=== PATIENT | female | born 1990 | race Two or more races ===

== ENCOUNTER 2019-03-17 12:04 | Observation (INO) | payer MEDICAID ==
[~2019-03-17 12:04] MED LIST: PREN-96 PO
[2019-03-17] MEDS ORDERED: FERR-7 PO (12:42)
== END 2019-03-17 13:10 | disposition home or self-care (01) | DRG 566 ==
LOC: LDRP 12:04
PROVIDERS: ADMIT Obstetrics & Gynecology; ATTEND Obstetrics & Gynecology
DX: O40.3XX0 Polyhydramnios, third trimester, not applicable or unspecified (principal); O26.893 Other specified pregnancy related conditions, third trimester; N89.8 Other specified noninflammatory disorders of vagina; Z87.891 Personal history of nicotine dependence; Z3A.31 31 weeks gestation of pregnancy
CPT/HCPCS: 59025; 76818; 81002; G0378

== ENCOUNTER 2019-03-20 11:18 | Observation (INO) | payer MEDICAID ==
[~2019-03-20] VITALS: Ht 152.4 cm; Wt 65.8 kg
[~2019-03-20 11:18] MED LIST changes: +FERR-7 PO
[2019-03-20] MEDS ORDERED: TERBUTALINE SULFATE 1 MG/ML 1ML VIAL SC PRN (12:15)
== END 2019-03-20 12:55 | disposition home or self-care (01) | DRG 566 ==
LOC: LDRP 11:18
PROVIDERS: ADMIT Specialist; ATTEND Specialist
DX: O40.3XX0 Polyhydramnios, third trimester, not applicable or unspecified (principal); Z3A.32 32 weeks gestation of pregnancy; Z87.891 Personal history of nicotine dependence
CPT/HCPCS: 59025; 76818; 81002; 96372; G0378; J3105

== ENCOUNTER 2019-03-24 11:38 | Observation (INO) | payer MEDICAID | END 2019-03-24 13:05 | disposition home or self-care (01) | DRG 566 | LOC: LDRP 11:38 | PROVIDERS: ADMIT Specialist; ATTEND Specialist | DX: O40.3XX0 Polyhydramnios, third trimester, not applicable or unspecified (principal); Z3A.32 32 weeks gestation of pregnancy | CPT/HCPCS: 59025; 76818; 81002; G0378 ==

== ENCOUNTER 2019-03-27 11:20 | Observation (INO) | payer MEDICAID | END 2019-03-27 12:40 | disposition home or self-care (01) | DRG 566 | LOC: LDRP 11:20 | PROVIDERS: ADMIT Obstetrics & Gynecology; ATTEND Obstetrics & Gynecology | DX: O40.3XX0 Polyhydramnios, third trimester, not applicable or unspecified (principal); Z3A.33 33 weeks gestation of pregnancy; Z87.891 Personal history of nicotine dependence | CPT/HCPCS: 59025; 76818; 81002; G0378 ==

== ENCOUNTER 2019-03-31 11:16 | Observation (INO) | payer MEDICAID ==
[~2019-03-31] VITALS: Ht 152.4 cm; Wt 65.8 kg
== END 2019-03-31 12:30 | disposition home or self-care (01) | DRG 566 ==
LOC: LDRP 11:16
PROVIDERS: ADMIT Specialist; ATTEND Specialist
DX: O40.3XX0 Polyhydramnios, third trimester, not applicable or unspecified (principal); Z3A.33 33 weeks gestation of pregnancy; Z87.891 Personal history of nicotine dependence
CPT/HCPCS: 59025; 76818; 81002; G0378

== ENCOUNTER 2019-04-03 11:53 | Observation (INO) | payer MEDICAID ==
[~2019-04-03] VITALS: Ht 152.4 cm; Wt 66.7 kg
== END 2019-04-03 12:55 | disposition home or self-care (01) | DRG 566 ==
LOC: LDRP 11:53
PROVIDERS: ADMIT Obstetrics & Gynecology; ATTEND Obstetrics & Gynecology
DX: O40.3XX0 Polyhydramnios, third trimester, not applicable or unspecified (principal); Z3A.34 34 weeks gestation of pregnancy
CPT/HCPCS: 59025; 76818; 81002; G0378

== ENCOUNTER 2019-04-07 15:01 | Observation (INO) | payer MEDICAID ==
[~2019-04-07] VITALS: Ht 152.4 cm; Wt 66.7 kg
[2019-04-07] MEDS ORDERED: BETAMETHASONE ACET (6MG/ML) 5ML VIAL IM ONE (16:30)
== END 2019-04-07 16:55 | disposition home or self-care (01) | DRG 566 ==
LOC: LDRP 15:01
PROVIDERS: ADMIT Specialist; ATTEND Specialist
DX: O40.3XX0 Polyhydramnios, third trimester, not applicable or unspecified (principal); Z3A.34 34 weeks gestation of pregnancy; Z87.891 Personal history of nicotine dependence
CPT/HCPCS: 59025; 76818; 81002; 96372; G0378; J0702

== ENCOUNTER 2019-04-08 15:07 | Observation (INO) | payer MEDICAID ==
[2019-04-08] MEDS ORDERED: BETAMETHASONE ACET (6MG/ML) 5ML VIAL IM ONE (16:30)
== END 2019-04-08 17:10 | disposition home or self-care (01) | DRG 566 ==
LOC: LDRP 15:07
PROVIDERS: ADMIT Obstetrics & Gynecology; ATTEND Obstetrics & Gynecology
DX: O26.893 Other specified pregnancy related conditions, third trimester (principal); Z3A.35 35 weeks gestation of pregnancy; Z87.891 Personal history of nicotine dependence
CPT/HCPCS: 59025; 81002; 96372; G0378; J0702

== ENCOUNTER 2019-04-10 18:17 | Observation (INO) | payer MEDICAID ==
[2019-04-10 19:34] LABS: Urine Bacteria FEW /hpf (None Seen); Urine Blood Negative /uL (Negative); Urine Specific Gravity 1.019 (1.001-1.035); Urine WBC 49 /hpf (0 - 5)
== END 2019-04-10 19:20 | disposition home or self-care (01) | DRG 566 ==
LOC: LDRP 18:17
PROVIDERS: ADMIT Specialist; ATTEND Specialist
DX: O40.3XX0 Polyhydramnios, third trimester, not applicable or unspecified (principal); Z3A.35 35 weeks gestation of pregnancy; Z87.891 Personal history of nicotine dependence
CPT/HCPCS: 59025; 76818; 81001; 81002; 87086; G0378

== ENCOUNTER 2019-04-15 04:16 | Inpatient (IN) | payer MEDICAID | END 2019-04-17 19:45 | disposition home or self-care (01) | LOC: LDRP 04:16 | PROC: 10E0XZZ Delivery of Products of Conception, External Approach (ICD-10-PCS; principal; ~2019-04-15) | DX: O42.913 Preterm premature rupture of membranes, unspecified as to length of time between rupture and onset of labor, third trimester (principal); O60.14X0 Preterm labor third trimester with preterm delivery third trimester, not applicable or unspecified; Z37.0 Single live birth; O99.824 Streptococcus B carrier state complicating childbirth; Z3A.36 36 weeks gestation of pregnancy ==

== ENCOUNTER 2020-09-13 02:35 | Emergency (ER) | payer MEDICAID ==
[~2020-09-13] VITALS: Ht 152.4 cm; Wt 54.4 kg
[2020-09-13 05:34] LABS: Basophils # (auto) 0.1 10 ^3/uL (0-0.2); Basophils % (auto) 0.6 % (0.0-2.0); Eosinophils # (auto) 0.3 10 ^3/uL (0-0.8); Eosinophils % (auto) 2.8 % (0.0-7.0); Hematocrit 35.8 % (36.0-46.0); Hemoglobin 11.2 g/dL (12.2-16.2); Lymphocytes # (auto) 2.1 10 ^3/uL (0.4-5.4); Lymphocytes % (auto) 22.4 % (10.0-50.0); Mean Corpuscular Hemoglobin 24.4 pg (28.0-32.0); Mean Corpuscular Hgb Conc. 31.3 g/dL (32.0-36.0); Monocytes # (auto) 0.4 10 ^3/uL (0-1.3); Monocytes % (auto) 4.1 % (0.0-12.0); Neutrophils # (auto) 6.6 10 ^3/uL (1.6-8.6); Neutrophils % (auto) 70.1 % (37.0-80.0); Platelet Count (auto) 308 10^3/uL (140-450); Red Blood Cells 4.59 10^6/uL (4.0-5.20); White Blood Cell 9.5 10^3/uL (4.4-10.8)
[2020-09-13 05:56] LABS: INR 0.93 (0.9-1.15); Partial Thromboplastin Time 23.5 sec (23.0-31.2)
[2020-09-13 05:57] LABS: Albumin 3.3 g/dL (3.4-5.0); Calcium 8.8 mg/dL (8.5-10.1); Potassium 3.7 mmol/L (3.5-5.1)
[2020-09-13 06:00] LABS: Urine Bacteria FEW /hpf (None Seen); Urine Blood 3+ /uL (Negative); Urine Specific Gravity 1.017 (1.001-1.035); Urine WBC 86 /hpf (0 - 5)
[2020-09-13 06:06] LABS: BUN/Creatinine Ratio 13.8; Bilirubin, Total 0.2 mg/dL (0.2-1.0)
[2020-09-13 06:17] VITALS: BP 125/82
== END 2020-09-13 08:50 | disposition left against medical advice (07) ==
LOC: ER 02:39
DX: O03.9 Complete or unspecified spontaneous abortion without complication (principal); O23.41 Unspecified infection of urinary tract in pregnancy, first trimester; Z3A.12 12 weeks gestation of pregnancy
CPT/HCPCS: 36415; 76801; 76817; 80053; 81001; 84702; 85025; 85610; 85730